=== PATIENT | male | born 1975 | race Hispanic/Latino ===

== ENCOUNTER → 2016-04-10 | Outpatient (CLI) | payer BC | LOC: GMA 14:23 | PROVIDERS: ATTEND Nurse Practitioner Family | DX: N30.01 Acute cystitis with hematuria (principal) ==

== ENCOUNTER → 2016-04-11 | Outpatient (CLI) | payer BC | LOC: GMA 18:46 | PROVIDERS: ATTEND Nurse Practitioner Family | DX: N30.01 Acute cystitis with hematuria (principal) ==

== ENCOUNTER → 2016-08-15 | Outpatient (CLI) | payer BC | END | disposition home or self-care (01) | LOC: LAB.O 14:14 | PROVIDERS: ATTEND Orthopaedic Surgery | DX: Z01.818 Encounter for other preprocedural examination (principal) ==

== ENCOUNTER → 2016-08-16 | Outpatient (CLI) | payer BC, SELFPAY ==
--- NOTE | 2016-08-16 16:22 | US ---
EXAM DESCRIPTION: Liver CLINICAL HISTORY: 40 years,Male,ELEVATED LFT'S COMPARISON: None TECHNIQUE: Multiple real-time sonographic images were obtained of the right upper quadrant. FINDINGS: The liver demonstrates normal echotexture. No masses. No cysts. It measures 15.9 cm in craniocaudal length. Gallbladder demonstrates surgically absent. The common bile duct measures four mm in diameter. Right kidney was not seen or evaluated. The pancreas visualized portions of the head and body appear unremarkable. No free fluid in the right upper quadrant. IMPRESSION: Unremarkable ultrasound of the right upper quadrant. Status post past cholecystectomy. Electronically signed by: Erick Charles MD 08/16/2016 4:22 PM CDT
== END | disposition home or self-care (01) ==
LOC: US 08:57
PROVIDERS: ATTEND Family Medicine
DX: R94.5 Abnormal results of liver function studies (principal)

== ENCOUNTER → 2016-12-13 | Outpatient (CLI) | payer BC | END | disposition home or self-care (01) | LOC: GMAM 16:39 | PROVIDERS: ATTEND Family Medicine | DX: E29.0 Testicular hyperfunction (principal); R53.83 Other fatigue ==

== ENCOUNTER → 2017-06-01 | Outpatient (CLI) | payer BC ==
--- NOTE | 2017-06-02 08:42 | RAD ---
EXAM DESCRIPTION: Shoulder,Right 2 or More Views CLINICAL HISTORY: SHOULDER PAIN COMPARISON: None Available. TECHNIQUE: Two views of the right shoulder. FINDINGS: There is adequate internal and external rotation. Normal glenohumeral alignment on transscapular Y views and transaxillary view There is no fracture or dislocation. There are no significant degenerative changes observed. There is widening of the acromioclavicular joint measuring 9 mm. The peripheral clavicle is slightly elevated compared to the level of the undersurface of the acromion. Findings suggest coracoclavicular ligament injury with AC joint separation. Present findings could be acute or chronic. Clinical correlation recommended. No glenohumeral dislocation. No fracture of the proximal humerus or scapula. No clavicular fracture is evident. No focal destructive or lytic bone lesion. IMPRESSION: AC joint separation type II. Electronically signed by: Luiz Claire MD 06/02/2017 8:42 AM ABSTRACTER
== END ==
LOC: RAD 08:44
PROVIDERS: ATTEND Orthopaedic Surgery
DX: S43.101A Unspecified dislocation of right acromioclavicular joint, initial encounter (principal)

== ENCOUNTER → 2017-06-12 | Outpatient (CLI) | payer BC | LOC: GMAM 12:23 | PROVIDERS: ATTEND Family Medicine | DX: E29.1 Testicular hypofunction (principal) ==

== ENCOUNTER 2017-06-28 12:47 | Emergency (ER) | payer BC ==
[2017-06-28 13:02] VITALS: TEMP 98.4
--- NOTE | 2017-06-28 13:20 | ED.PDOC ---
History of Present Illness - General Chief Complaint: Chest Pain/VT Stated Complaint: heart skipping beats,chest tightness Time Seen by Provider: 06/28/17 13:13 Source: patient Exam Limitations: no limitations Additional Information: PT C/O PALPITATIONS WITH CHEST TIGHTNESS. HAS HAD BEFORE. - History of Present Illness Timing/Duration: other - ONSET LAST PM Severity: moderate Location: substernal Activities at Onset: none Prior Chest Pain/Cardiac Workup: other - HX BICUSPID VALVE. Improving Factors: nothing Worsening Factors: nothing Associated Symptoms: chest pain, shortness of breath - INTERMITTENT WITH "SKIP" FEELING. Allergies/Adverse Reactions: Allergies NO KNOWN ALLERGY Allergy (Verified 01/03/15 21:50) Home Medications: Ambulatory Orders HYDROcodone 10MG/APAP 325MG [[place] 10/325] 1 tab PO PRN 06/28/17 Metoprolol Succinate [Toprol XL] 25 mg PO QDAC 14 Days tab.er.24 06/28/17 Testosterone Enanthate 200 mg IM .[id number] 06/28/17 Review of Systems - Review of Systems Constitutional: Denies: chills, fever EENTM: States: no symptoms reported Cardiology: States: chest pain, palpitations. Denies: syncope Gastrointestinal/Abdominal: Denies: nausea, vomiting Genitourinary: States: no symptoms reported Musculoskeletal: States: no symptoms reported Skin: States: other - NO DIAPHORESIS Neurological: States: no symptoms reported Endocrine: States: no symptoms reported Hematologic/Lymphatic: States: no symptoms reported Past Medical History (General) - Patient Medical History Hx Stroke: No Hx Cardiac Disorders: Yes - BICUSPID VALVE Hx Congestive Heart Failure: No Hx Diabetes: No Hx MRSA: No Surgical History: appendectomy, cholecystectomy - Vaccination History Hx Influenza Vaccination: Yes - Social History Hx Tobacco Use: Yes Hx Alcohol Use: Yes Family Medical History - Family History Mother Family History: Unknown Physical Exam - Physical Exam General Appearance: Alert, Anxious, No apparent distress Eyes, Ears, Nose, Throat Exam: PERRL/EOMI, normal ENT inspection Neck: non-tender, full range of motion, supple Respiratory: lungs clear, normal breath sounds Cardiovascular/Chest: regular rate, rhythm, no murmur Gastrointestinal/Abdominal: non tender, soft, no organomegaly Extremity: normal range of motion, non-tender, no pedal edema, no calf tenderness Neurologic: alert, normal mood/affect Skin Exam: normal color, warm/dry Lymphatic: no adenopathy Progress - Progress Progress: 06/28/17 14:54 STABLE STILL HAVING OCC PVC'S. 06/28/17 15:13 D/W CARLINE PRABHAKAR WITH PLAN AND WILL SEE IN F/U - EKG/XRAY/CT EKG: Sinus - 79, NL AXIS, NL INTERVALS, , no ST T wave changes - MAIP, Unchanged from - 08/05/15 Comments: RHYTHM STRIP SHOWS OCC PAC Departure - Departure Clinical Impression: Blood pressure alteration, PAC (premature atrial contraction), Heart palpitations Time of Disposition: 15:15 Disposition: Discharge to Home or Self Care Condition: Good Departure Forms: ED Discharge - Pt. Copy, Patient Portal Self Enrollment Instructions: DI for Palpitations, High Blood Pressure Referrals: Tong Werner MD [Primary Care Provider] - 1-2 Weeks Prescriptions: Metoprolol Succinate [Toprol XL] 25 mg PO QDAC 14 Days tab.er.24 Home Medications: Ambulatory Orders HYDROcodone 10MG/APAP 325MG [[place] 10/325] 1 tab PO PRN 06/28/17 Metoprolol Succinate [Toprol XL] 25 mg PO QDAC 14 Days tab.er.24 06/28/17 Testosterone Enanthate 200 mg IM .[id number] 06/28/17
--- NOTE | 2017-06-28 13:33 | RAD ---
EXAM DESCRIPTION: Chest,1 View CLINICAL HISTORY: 41 years Male, PALPITATIONS COMPARISON: August 05, 2015 TECHNIQUE: AP portable chest. FINDINGS: Fair expansion of the lungs is evident without consolidation, layering effusion, or large mass. Heart size and vascularity appear normal for AP technique and degree of inspiration. No gross bony, hilar, or mediastinal abnormalities are noted. IMPRESSION: Normal chest, one view Electronically signed by: Tong Colvin MD 06/28/2017 1:32 PM CDT
[2017-06-28 15:33] VITALS: BP 120/78; O2SAT 98
== END 2017-06-28 15:30 | disposition home or self-care (01) ==
LOC: ER 12:47
DX: I49.1 Atrial premature depolarization (principal); R00.2 Palpitations; R03.0 Elevated blood-pressure reading, without diagnosis of hypertension

== ENCOUNTER → 2019-02-14 | Outpatient (CLI) | payer BC ==
--- NOTE | 2019-02-14 10:48 | CT ---
EXAM DESCRIPTION: Chest w/o Contrast CLINICAL HISTORY: 43 years, Male, OTHER CHEST PAIN COMPARISON: Chest x-ray June 28, 2017, CTA of the chest January 25, 2015 TECHNIQUE: Thin-section noncontrast axial CT images are obtained according to our protocol. Reconstructed MPR images are created and reviewed as well. FINDINGS: Lungs: No consolidating pulmonary infiltrate or groundglass infiltrate. No worrisome pulmonary mass or nodule. Tiny calcified granuloma in the left lower lobe. Previously the nodule was noncalcified. No imaging follow-up is recommended for this finding. Mediastinum: Lymph nodes are normal in size. Normal vascular contours. Heart size is normal with no pericardial effusion. Chest wall/axilla: No mass or adenopathy. Lower neck/supraclavicular: No mass or adenopathy. Upper abdomen: Small cyst in the upper left lobe of liver measures 1 cm. Otherwise unremarkable upper abdominal viscera. IMPRESSION: No acute process is identified in the chest. This exam was performed according to our departmental dose-optimization program, which includes automated exposure control, adjustment of the mA and/or kV according to patient size and/or use of iterative reconstruction technique. Total DLP equals 528.61 mGycm. Electronically signed by: Luiz Claire MD 02/14/2019 10:46 AM KAIAWHINA KOHANGA REO
== END | disposition home or self-care (01) ==
LOC: CT 07:57
PROVIDERS: ATTEND Family Medicine
DX: R07.89 Other chest pain (principal)